=== PATIENT | female | born 1990 | race African-American/Black ===

== ENCOUNTER 2018-11-23 10:31 | Emergency (ER) | payer OTHER ==
[2018-11-23] MEDS ORDERED: predniSONE 20 MG TABLET (UD) PO ONE (10:34)
[2018-11-23 10:41] VITALS: BMI 21.5
[2018-11-23] MEDS ORDERED: predniSONE 20 MG TABLET (UD) ONE (10:43)
[2018-11-23] MEDS ORDERED: ACETAMINOPHEN 500 MG TABLET (FP) PO ONE (10:43)
[2018-11-23] MEDS ORDERED: ALBUTEROL SO4 2.5/IPRATROPIUM 0.5 INH SOL 3 ML VIAL.NEB. NEB ONE (10:43)
[2018-11-23] MEDS ORDERED: ACETAMINOPHEN 500 MG TABLET (FP) ONE (10:43)
--- NOTE | 2018-11-23 10:43 | PDOC ---
History of Present Illness - General Chief Complaint: Asthma Stated Complaint: ASTHMA Time Seen by Provider: 11/23/18 10:34 - History of Present Illness Initial Comments: 28 year old female with PMH of asthma presenting with cough, fevers, chills, and worsening SOB for the past day. States that she has used her prescribed Ventolin inhaler and got better. She was completely symptom free until yesterday. Her cough is non-productive and she did not attempt to measure a fever at home but felt warm. Taz any nausea, vomiting, diarrhea, or other symptoms. 11/23/18 10:52 Past History - Past Medical History Allergies/Adverse Reactions: Allergies Allergy/AdvReac Type Severity Reaction Status Date / Time No Known Allergies Allergy Unverified 11/23/18 10:34 Home Medications: Ambulatory Orders Albuterol Sulfate Inhaler - [Ventolin HFA Inhaler -] 1 puff IN PRN 11/23/18 Azithromycin 250 mg PO DAILY 4 Days #4 tablet 11/23/18 Prednisone [Prednisone 50 MG TABLETS] 50 mg PO DAILY 5 Days #5 tablet 11/23/18 Asthma: Yes COPD: No - Suicide/Smoking/Psychosocial Hx Smoking History: Never smoked Hx Alcohol Use: Yes (SOCIAL) Drug/Substance Use Hx: Yes (WEED) Review of Systems - Review of Systems Constitutional: Yes: Chills, Fever. No: Loss of Appetite, Weakness HEENTM: No: Eye Pain, Blurred Vision, Tearing Respiratory: Yes: Cough, Shortness of Breath, SOB with Exertion, Wheezing. No: SOB at Rest Cardiac (ROS): No: Chest Pain, Irregular Heart Rate, Lightheadedness, Palpitations ABD/GI: No: Diarrhea, Nausea, Vomiting : No: Burning, Dysuria Musculoskeletal: No: Back Pain, Joint Pain Integumentary: No: Bruising, Change in Color, Erythema, Flushing Neurological: No: Headache, Numbness, Paresthesia Psychiatric: No: Anxiety, Depression Hematologic/Lymphatic: No: Anemia, Blood Clots, Easy Bleeding *Physical Exam - Vital Signs Last Vital Signs Temp Pulse Resp BP Pulse Ox 102.1 F H 120 H 24 H 121/71 98 11/23/18 10:32 11/23/18 10:32 11/23/18 10:32 11/23/18 10:32 11/23/18 10:32 - Physical Exam General Appearance: Yes: Nourished, Appropriately Dressed, Apparent Distress, Mild Distress HEENT: positive: JASSON, Normal ENT Inspection, Normal Voice. negative: EOMI Neck: positive: Trachea midline, Normal Thyroid, Supple. negative: Tender, Rigid Respiratory/Chest: positive: Lungs Clear, Respiratory Distress (mild). negative : Chest Tender, Normal Breath Sounds (mildly decreased breath sounds bilaterally with faitn expiratory wheezes), Accessory Muscle Use, Labored Respiration Cardiovascular: positive: Regular Rhythm, Tachycardia. negative: Regular Rate Gastrointestinal/Abdominal: positive: Normal Bowel Sounds, Flat, Soft. negative : Tender Lymphatic: negative: Adenopathy, Tenderness Musculoskeletal: positive: Normal Inspection. negative: Decreased Range of Motion Extremity: positive: Normal Capillary Refill, Normal Inspection, Normal Range of Motion. negative: Tender Integumentary: positive: Normal Color, Dry, Warm Neurologic: positive: Fully Oriented, Alert, Normal Mood/Affect, Normal Response , Motor Strength 5/5 Moderate Sedation - Procedure Monitoring Vital Signs: Procedure Monitoring Vital Signs Temperature 102.1 F H 11/23/18 10:32 Pulse Rate 120 H 11/23/18 10:32 Respiratory Rate 24 H 11/23/18 10:32 Blood Pressure 121/71 11/23/18 10:32 O2 Sat by Pulse Oximetry (%) 98 11/23/18 10:32 Medical Decision Making - Medical Decision Making 28 year old female with PMH of asthma presenting with SOB and cough for the past day. She had a CXR done this morning at [facility] which we received the report for and was red as unremarkable so CXR was deferred here. Her airways drastically improved with duonebs x 4, prednisone 60, and azithromycin 500. Will DC with prednisone 50 x 4 days and azithromycin 250 x 4 days with return precautions and follow up instructions. She will likely need to have Advair or a nebulizer at home because this was her second exacerbation within 10 days. She agreed to discuss this with her PCP thomas her appointment in two days. 11/23/18 11:53 *DC/Admit/Observation/Transfer Diagnosis at time of Disposition: Asthma exacerbation Qualifiers: Asthma severity: mild Asthma persistence: intermittent Qualified Code(s): J45.21 - Mild intermittent asthma with (acute) exacerbation - Discharge Dispostion Condition at time of disposition: Stable Decision to Admit order: No - Prescriptions Prescriptions: Azithromycin 250 mg PO DAILY 4 Days #4 tablet Prednisone [Prednisone 50 MG TABLETS] 50 mg PO DAILY 5 Days #5 tablet - Referrals Referrals: [facility] [Provider Group] - Patient Instructions Printed Discharge Instructions: Asthma -- Adult Additional Instructions: You do not have a pneumonia on your CXR from the results this morning. However, the azithromycin may help bring down the inflammation in your lung linings. Pleas take the steroids and azithromycin daily for the next 4 days and please discuss the use of advair or a nebulizer to have at home with your PCP on Friday. please return to the ED if you have new or worsening symptoms. - Post Discharge Activity
[2018-11-23] MEDS: ALBUTEROL SO4 2.5/IPRATROPIUM 0.5 INH SOL 3 ML VIAL.NEB. NEB SCH ×4 (10:52→11:43)
--- NOTE | 2018-11-23 11:18 | PDOC ---
Attending Attestation - Resident Resident Name: J Carlos Kiser - ED Attending Attestation I have performed the following: I have examined & evaluated the patient, The case was reviewed & discussed with the resident, I agree w/resident's findings & plan, Exceptions are as noted - HPI HPI: 11/23/18 12:26 Patient with URI, nonproductive cough, wheezing, and chest tightness for several days. History of asthma, though only when she seems to have a "cold" periodically on short courses of steroids, last course several weeks ago and lasting only 4 days. No hospitalizations. Began to have a fever yesterday. Did not receive a flu shot. - Physicial Exam PE: 11/23/18 12:33 Alert and oriented well-developed well-nourished no acute distress cheerful and cooperative Afebrile, vital signs normal Nasal congestion, watery nasal discharge. Ears and throat clear Neck supple without bruit mass or nodes Bilateral end expiratory wheezing, mild to moderate. No tachypnea or dyspnea. No respiratory distress CV S1 and S2 normal without murmur rub or gallop pulses full and symmetric no JVD or edema no bruits Abdomen benign Skin clear, no rash, adequate turgor and wet mucous membranes Extremities no CCE Neurological intact - Medical Decision Making 11/23/18 12:34 Assessment: Viral bronchitis, possibly influenza, of greater than 2 days duration. No significant respiratory compromise Plan: Nebulizers administered 2 with good response. Wheezing completely resolved, full breath sounds bilaterally, oxygen saturation 100%. Discharged on oral antibiotics, to continue the steroids prescribed by her primary physician, and to return to ER if breathing worsens. Fully ambulatory and in no distress, respiratory or otherwise discharged in the company of to follow-up as needed.
[2018-11-23 11:28] VITALS: BP 106/65; PULSE 104; TEMP 100.4
[2018-11-23] MEDS ORDERED: AZITHROMYCIN 250 MG TABLET PO ONE (11:39)
[2018-11-23] MEDS ORDERED: AZITHROMYCIN 250 MG TABLET ONE (11:56)
== END 2018-11-23 12:27 | disposition home or self-care (01) ==
LOC: FER 10:31
PROC: 3E0F7GC Introduction of Other Therapeutic Substance into Respiratory Tract, Via Natural or Artificial Opening (ICD-10-PCS; principal; 2018-11-23)
DX: J45.21 Mild intermittent asthma with (acute) exacerbation (principal)
CPT/HCPCS: 84703; 87804; 94640; 99282-25